=== PATIENT | male | born 2000 | race Caucasian/White ===

== ENCOUNTER 2022-10-05 10:33 | Emergency (ER) | payer OTHER, SELFPAY ==
--- NOTE | 2022-10-05 10:44 | ED.EYEPROB ---
HPI - Eye Problem General Chief complaint: Eye Problems Stated complaint: Right eye Source: patient and RN notes reviewed History of Present Illness HPI Narrative: 22 yo M presents to urgent care with complaints of bilateral eye irritation, mostly on the right. Pt states [employer], he was working at [employer] where a [employer] bottle busted and liquid from the bottle sprayed into pt's eyes. Pt states he irrigated his eyes x 30 minutes at work with eye wash and water. Pt states he continues to have mild burning and states his right eye is a little blurry. Pt deneis any FB sensation and reports a little photophobia in the right eye. Pt does not wear contacts. Denies any other complaints. Related Data Home Medications Medication Instructions Recorded Confirmed No Home Medications 10/05/22 10/05/22 Allergies Allergy/AdvReac Type Severity Reaction Status Date / Time No Known Allergies Allergy Verified 10/05/22 10:53 Review of Systems Review of Systems: CONSTITUTIONAL: Denies fever, chills, or sweats. EYES:Bilateral eye irritation, worse on right side. Pt states his right eye is + for blurriness. ENT: Denies otalgia and sore throat CARDIOVASCULAR: Denies chest pain, palpitations, or edema. RESPIRATORY: Denies cough or dyspnea. GASTROINTESTINAL: Denies abdominal pain, nausea, vomiting, or diarrhea. GENITOURINARY: Denies dysuria or hematuria. SKIN: Denies rash or itching. MUSCULOSKELETAL: Denies back pain, joint pain, or myalgia. NEUROLOGIC: Denies headache, numbness, or weakness. Pertinent positives per HPI. PMFSH Comments At the time of my signature, I reviewed and agree with the nursing past medical, surgical, social, and family history. There is no relevant family history pertinent to the patient complaint. Exam Narrative: GENERAL: This is a well-nourished, well-developed patient, in no apparent distress. HEAD: normocephalic, atraumatic. EYES: Sclera clear/white. Right eye noted for photophobia. conjunctivae pale pink; not injected. PERRL. Ramirez lamp exam performed on right eye and no abrasion was noted. Lid inversion was performed on right eye and no FB was found. EARS: External ears normal, auditory canals clear and without drainage, TMs normal without perforation. Hearing grossly intact. NOSE: External nose normal with no obvious nasal discharge, nares without redness, no rhinorrhea. THROAT: Mucous membranes moist, posterior pharynx clear. NECK: Neck supple, non-tender without lymphadenopathy, masses or thyromegaly. CARDIOVASCULAR: Regular rate RESPIRATORY: No respiratory distress SKIN: warm, intact with no suspicious lesions or rash, good texture and turgor. NEURO: awake, alert, and oriented to person, place and time. There were no obvious focal neurologic abnormalities. Course Course Level of Care: Express Care Visit Vital Signs Vital signs: Vital Signs Temperature 98.1 F 10/05/22 10:50 Pulse Rate 78 10/05/22 10:50 Respiratory Rate 16 10/05/22 10:50 Blood Pressure 157/90 H 10/05/22 10:50 Pulse Oximetry 100 10/05/22 10:50 Oxygen Delivery Room Air 10/05/22 10:50 Temperature 98.1 F 10/05/22 10:50 Pulse Rate 78 10/05/22 10:50 Respiratory Rate 16 10/05/22 10:50 Blood Pressure 157/90 H 10/05/22 10:50 Pulse Oximetry 100 10/05/22 10:50 Oxygen Delivery Room Air 10/05/22 10:50 reviewed. MDM - Eye Problem MDM Narrative Medical decision making narrative: Spoke to Adan at Poison control who recommended additional flushing of the eye and staining the case to evaluate for corneal abrasion. Recommend follow up with Ophthalmology outpt. Case # [id number]. May take ibuprofen and/or Tylenol for pain every 6 hours. If you develop any new or worsening symptoms, go to the ER. Follow up with Ophthalmology at [facility] or [facility] within the next week. Differential Diagnosis Differential diagnosis: Likely corneal abrasion, conjunctivitis and ac
[2022-10-05 10:50] VITALS: BP 157/90; PULSE 78; RESP 16; TEMP 36.7; O2SAT 100
== END 2022-10-05 11:29 | disposition home or self-care (01) ==
PROVIDERS: Emergency Provider Nurse Practitioner Family
DX: Z77.098 Contact with and (suspected) exposure to other hazardous, chiefly nonmedicinal, chemicals (principal)
CPT/HCPCS: 99203; A9270; G0463